=== PATIENT | female | born 1950 | race Two or more races ===

== ENCOUNTER 2020-01-29 06:30 | Day surgery (SDC) | payer OTHER ==
[~2020-01-29 06:30] MED LIST: LOTREL 5-20 MG1 CAP PO; SYNTHROID88 MCG PO
== END 2020-01-29 16:15 | disposition home or self-care (01) ==
LOC: CIR.AMB 06:30
PROVIDERS: ATTEND Colon & Rectal Surgery
DX: K62.0 Anal polyp (principal); K64.8 Other hemorrhoids; K64.4 Residual hemorrhoidal skin tags
CPT/HCPCS: 0184T; 46947; 46946; 64430